=== PATIENT | female | born 1980 | race Asian ===

== ENCOUNTER 2020-05-16 17:55 | Emergency (ER) | payer OTHER ==
[~2020-05-16] VITALS: Ht 165.1 cm; Wt 52.2 kg
[2020-05-16 20:37] LABS: BASOPHILS # (AUTO) 0.1 (0.0-0.1); BASOPHILS % 0.8 % (0.0-1.0); EOSINOPHILS # (AUTO) 1.2 (0.0-0.4); EOSINOPHILS % 12.5 % (0.0-6.0); HEMOGLOBIN 13.5 g/dL (12.0-16.0); LYMPHOCYTES # (AUTO) 3.4 (1.0-3.2); LYMPHOCYTES % 35.3 % (18.0-39.1); MEAN CORPUSCULAR HEMOGLOBIN 27.8 pg (28-32); MEAN CORPUSCULAR HGB CONC 32.1 g/dL (31-35); MEAN CORPUSCULAR VOLUME 86.6 fL (81-99); MONOCYTES # (AUTO) 0.5 (0.2-0.8); MONOCYTES % 5.6 % (4.4-11.3); NEUTROPHILS # (AUTO) 4.3 (2.1-6.9); NEUTROPHILS % 45.6 % (38.7-80.0); PLATELET COUNT 201 x10e3/uL (140-360); RED BLOOD COUNT 4.85 x10e6/uL (3.6-5.1); RED CELL DISTRIBUTION WIDTH 12.2 % (11.7-14.4)
[2020-05-16 20:52] LABS: ANION GAP 13.7 mmol/L (8-16); BLOOD UREA NITROGEN 8 mg/dL (7-26); BUN/CREATININE RATIO 11 (6-25); CALCIUM 9.2 mg/dL (8.4-10.2); CARBON DIOXIDE 26 mmol/L (22-29); CHLORIDE 102 mmol/L (98-107); CREATININE, SERUM 0.75 mg/dL (0.57-1.11); EST GLOMERULAR FILTRATION RATE > 60 ML/MIN (60-); GLUCOSE 116 mg/dL (74-118); POTASSIUM 3.7 mmol/L (3.5-5.1); SODIUM 138 mmol/L (136-145)
--- NOTE | 2020-05-16 21:24 | Emergency Department Note ---
History of Present Illnes History of Present Illness Chief Complaint: Abdominal Complaints History of Present Illness This is a 40 year old female N FROM HOME WITH COMPLAINTS OF RIGHT LOWER ABDOMINAL/SUPRAPUBIC PAIN; DENIES NAUSEA, VOMITING, OR DIARRHEA, DENIES BURNING OR URINARY SYMPTOMS. PATIENT RATES PAIN 8/10, APPEARS IN NO DISTRESS, reports has h/o ovarian cysts and also reports having a vaginal discharge at this time . Historian: Patient Arrival Mode: Car Customer Service Driver Required: No Onset (how long ago): day(s) (1) Location: suprapubic, rlq Quality: pain discomfort Radiation: Reports non-radiation Severity: mild Onset quality: gradual Duration (how long): hour(s) (1) Timing of current episode: constant Progression: unchanged Chronicity: recurrent Context: Denies recent illness, Denies recent surgery Relieving factors: none Exacerbating factors: none Associated symptoms: Reports other (vaginal discharge) Treatments prior to arrival: none Past Medical/Family History Physician Review I have reviewed the patient's past medical and family history. Any updates have been documented here. Past Medical History Recent Fever: No Clinical Suspicion of Infectio: No New/Unexplained Change in Ment: No Past Medical History: None Past Surgical History: None Social History Smoking Cessation: Never Smoker Alcohol Use: None Any Illegal Drug Use: No Physically hurt or threatened: No Review of Systems Review of Systems Constitutional: Reports no symptoms EENTM: Reports no symptoms Cardiovascular: Reports no symptoms Respiratory: Reports no symptoms Gastrointestinal: Reports no symptoms Genitourinary: Reports as per HPI Musculoskeletal: Reports no symptoms Integumentary: Reports no symptoms Neurological: Reports no symptoms Psychological: Reports no symptoms Endocrine: Reports no symptoms Hematological/Lymphatic: Reports no symptoms Physical Exam Related Data Allergies: Coded Allergies: No Known Allergies (Unverified , 05/16/20) Triage Vital Signs Vital Signs Date Time Temp Pulse Resp B/P (MAP) Pulse Ox O2 Delivery O2 Flow Rate FiO2 05/16/20 18:28 98.2 67 18 115/85 100 Room Air Vital signs reviewed: Yes Physical Exam CONSTITUTIONAL Constitutional: Present well-developed, Present well-nourished; Absent distressed HENT HENT: Present normocephalic, Present atraumatic, Present oropharynx clear/moist, Present nose normal HENT L/R: Present left ext ear normal, Present right ext ear normal EYES Eyes: Reports PERRL, Reports conjunctivae normal NECK Neck: Present ROM normal PULMONARY Pulmonary: Present effort normal, Present breath sounds normal CARDIOVASCULAR Cardiovascular: Present regular rhythm, Present heart sounds normal, Present capillary refill normal, Present normal rate GASTROINTESTINAL Abdominal: Present soft, Present bowel sounds normal, Present tender (mild suprapubic tenderness, no rlq tenderness) GENITOURINARY Genitourinary: Present exam deferred SKIN Skin: Present warm, Present dry MUSCULOSKELETAL Musculoskeletal: Present ROM normal NEUROLOGICAL Neurological: Present alert, Present oriented x 3, Present no gross motor or sensory deficits PSYCHOLOGICAL Psychological: Present mood/affect normal, Present judgement normal Results Laboratory Result Diagram: 05/16/20195305/16/201953 Laboratory Laboratory Tests Test 05/16/20 19:54 White Blood Count 9.51 x10e3/uL (4.8-10.8) Red Blood Count 4.85 x10e6/uL (3.6-5.1) Hemoglobin 13.5 g/dL (12.0-16.0) Hematocrit 42.0 % (34.2-44.1) Mean Corpuscular Volume 86.6 fL (81-99) Mean Corpuscular Hemoglobin 27.8 pg (28-32) Mean Corpuscular Hemoglobin Concent 32.1 g/dL (31-35) Red Cell Distribution Width 12.2 % (11.7-14.4) Platelet Count 201 x10e3/uL (140-360) Neutrophils (%) (Auto) 45.6 % (38.7-80.0) Lymphocytes (%) (Auto) 35.3 % (18.0-39.1) Monocytes (%) (Auto) 5.6 % (4.4-11.3) Eosinophils (%) (Auto) 12.5 % (0.0-6.0) Basophils (%) (Auto) 0.8 % (0.0-1.0) Neutrophils # (Auto) 4.3 (2.1-6.9) Lymphocytes # (Auto) 3.4 (1.0-3.2) Monocytes # (Auto) 0.5 (0.2-0.8) Eosinophils # (Auto) 1.2 (0.0-0.4) Basophils # (Auto) 0.1 (0.0-0.1) Absolute Immature Granulocyte (auto 0.02 x10e3/uL (0-0.1) Sodium Level 138 mmol/L (136-145) Potassium Level 3.7 mmol/L (3.5-5.1) Chloride Level 102 mmol/L (98-107) Carbon Dioxide Level 26 mmol/L (22-29) Anion Gap 13.7 mmol/L (8-16) Blood Urea Nitrogen 8 mg/dL (7-26) Creatinine 0.75 mg/dL (0.57-1.11) Estimat Glomerular Filtration Rate > 60 ML/MIN (60-) BUN/Creatinine Ratio 11 (6-25) Glucose Level 116 mg/dL (74-118) Calcium Level 9.2 mg/dL (8.4-10.2) Lab results reviewed: Yes Imaging Imaging results reviewed: Yes Impressions Procedure: [id number] US/US PELVIS COMPLETE NON OB Exam Date: 05/16/20 Exam Time: 2040 REPORT STATUS: Signed EXAM: Transabdominal Pelvic Ultrasound with duplex INDICATION: ^RLQ PAIN H/O OVARIAN CYST, EVAL FOR CYST, TORSION ^20200516 ^2040 ^Y COMPARISON: None TECHNIQUE: Grayscale transverse and sagittal transabdominal images were obtained of the pelvis. Grayscale, color, and spectral waveform analysis of the ovaries was performed. CLINICAL HISTORY: 40 year old A0; last menstrual period: Unknown. FINDINGS: Uterus Orientation: Normal Size: ... 7.1 x 3.9 x 4.6 cm, Normal Mass: None Cervix: Normal Endometrium: Thickness: 0.3 cm, Normal. Appearance: Homogeneous echotexture without focal thickening. Right ovary: Size: 5.3 x 2.7 x 3.1 cm Mass/Cyst: A 3.6 x 2.5 x 2.6 cm cyst without suspicious features a smaller cyst/follicle along the larger cyst wall.. Left ovary: Size: 2.2 x 1 x 1.8 cm Mass/Cyst: None Normal ovarian waveforms. Adnexa: Normal Cul-de-sac: No free fluid IMPRESSION: A 3.6 cm right ovarian cyst with an adjacent/internal smaller cyst, likely physiologic, possibly to cumulus oophorus. No evidence of ovarian torsion. Signed by: John Hernadez DO on 05/16/2020 10:09 PM Dictated By: JOHN HERNADEZ DO 08 Transcribed By: RENAE on 05/16/202208 COPY TO: LAKHWINDER CURRY MD~ Assessment & Plan Medical Decision Making MDM pt with suprapubic and right lower pelvic pain cbc, bmp, ua, preg test, pelvic ultrasound ordered to eval for uti, leukocytosis, ovarian cyst, ovarian torsion Assessment & Plan Final Impression: (1) Ovarian cyst (2) Bacterial vaginosis Depart Disposition: HOME, SELF-CARE Last Vital Signs Date Time Temp Pulse Resp B/P (MAP) Pulse Ox O2 Delivery O2 Flow Rate FiO2 05/16/20 18:28 98.2 67 18 115/85 100 Room Air LAKHWINDER CURRY MD May 16, 2020 21:24
[2020-05-16 21:28] LABS: BILIRUBIN,URINE NEGATIVE (NEGATIVE); CLARITY,URINE SL CLOUDY (CLEAR); COLOR,URINE STRAW (YELLOW); KETONES,URINE NEGATIVE (NEGATIVE); LEUKOCYTE ESTERASE ,URINE TRACE (NEGATIVE); NITRITE,URINE NEGATIVE (NEGATIVE); PROTEIN,URINE DIPSTICK NEGATIVE (NEGATIVE); URINE UROBILINOGEN 0.2 mg/dL (0.2 - 1)
[2020-05-16 21:38] LABS: BACTERIA,URINE MODERATE /HPF; EPITHELIAL CELLS,URINE MANY /LPF; TRANSITIONAL EPI CELLS,URINE MODERATE
--- NOTE | 2020-05-16 22:12 | Diagnostic Imaging Report ---
EXAM: Transabdominal Pelvic Ultrasound with duplex INDICATION: ^RLQ PAIN H/O OVARIAN CYST, EVAL FOR CYST, TORSION ^20200516 ^2040 ^Y COMPARISON: None TECHNIQUE: Grayscale transverse and sagittal transabdominal images were obtained of the pelvis. Grayscale, color, and spectral waveform analysis of the ovaries was performed. CLINICAL HISTORY: 40 year old A0; last menstrual period: Unknown. FINDINGS: Uterus Orientation: Normal Size: ... 7.1 x 3.9 x 4.6 cm, Normal Mass: None Cervix: Normal Endometrium: Thickness: 0.3 cm, Normal. Appearance: Homogeneous echotexture without focal thickening. Right ovary: Size: 5.3 x 2.7 x 3.1 cm Mass/Cyst: A 3.6 x 2.5 x 2.6 cm cyst without suspicious features a smaller cyst/follicle along the larger cyst wall.. Left ovary: Size: 2.2 x 1 x 1.8 cm Mass/Cyst: None Normal ovarian waveforms. Adnexa: Normal Cul-de-sac: No free fluid IMPRESSION: A 3.6 cm right ovarian cyst with an adjacent/internal smaller cyst, likely physiologic, possibly to cumulus oophorus. No evidence of ovarian torsion. Signed by: Mack Hernadez DO on 05/16/2020 10:09 PM
[2020-05-16 23:10] VITALS: BP 104/73
== END 2020-05-16 23:12 | disposition home or self-care (01) ==
LOC: ER 19:34
DX: R10.31 Right lower quadrant pain (principal); N76.0 Acute vaginitis; N83.201 Unspecified ovarian cyst, right side
CPT/HCPCS: 36415; 76856; 80048; 81001; 84702; 85025; 99283